=== PATIENT | female | born 1940 | race Caucasian/White ===

== ENCOUNTER → 2019-08-13 11:49 | Outpatient (CLI) | payer MEDICARE, SELFPAY ==
--- NOTE | 2019-08-13 | DI.MG.S_ITS ---
BILATERAL DIGITAL SCREENING MAMMOGRAM 3D/2D WITH CAD: 08/13/2019 CLINICAL: Routine screening. Comparison is made to exams dated: 04/24/2011 mammogram, 05/09/2012 mammogram, and 07/03/2017 mammogram - [facility]. There are scattered fibroglandular elements in both breasts. Current study was also evaluated with a Computer Aided Detection (CAD) system. There are benign vascular calcifications in both breasts. No significant masses, calcifications, or other findings are seen in either breast. There has been no significant interval change. IMPRESSION: There is no mammographic evidence of malignancy. A 1 year screening mammogram is recommended. This exam was interpreted at Station ID: [id number]. NOTE: For mammograms, a report in lay terms will be sent to the patient. Approximately 15% of breast malignancies will not be visualized mammographically. In the management of a palpable breast mass, a negative mammogram must not discourage biopsy of a clinically suspicious lesion. Electronically Signed By: Markell patten/yaron:08/22/2019 11:03:49 letter sent: Normal Exam ACR BI-RADS Category 2: Benign Finding(s) 3342F
== END ==
PROVIDERS: PCP Internal Medicine; Referring Provider Internal Medicine; Visit Provider Internal Medicine
DX: Z12.31 Encounter for screening mammogram for malignant neoplasm of breast (principal)
CPT/HCPCS: 77063; 77067

== ENCOUNTER → 2019-08-13 13:49 | Outpatient (CLI) | payer MEDICARE, SELFPAY ==
[2019-08-13] MEDS: ZOLEDRONIC ACID 5 MG in SODIUM CHLORIDE 0.9% 100 ML 318.75 ML IV (14:40)
[2019-08-13 15:06] VITALS: BP 119/56; PULSE 73; RESP 16; TEMP 36.9; O2SAT 99
== END ==
PROVIDERS: PCP Internal Medicine; Referring Provider Internal Medicine; Visit Provider Internal Medicine
DX: M81.0 Age-related osteoporosis without current pathological fracture (principal)
CPT/HCPCS: 96365; J3489

== ENCOUNTER → 2020-01-25 14:01 | Outpatient (CLI) | payer MEDICARE, SELFPAY ==
[2020-01-26 22:54] LABS: COVID19 Sendout Not Detected (Not Detected)
== END ==
PROVIDERS: PCP Internal Medicine; Visit Provider Physician Assistant
DX: Z11.59 Encounter for screening for other viral diseases (principal)
CPT/HCPCS: 87635

== ENCOUNTER 2020-01-28 11:36 | Day surgery (SDC) | payer MEDICARE, SELFPAY ==
[2020-01-28 11:59] VITALS: BP 130/66; PULSE 64; RESP 16; TEMP 36.6; O2SAT 98; BMI 21.0
[2020-01-28] MEDS: SODIUM CHLORIDE 0.9% 1,000 ML 70 ML IV (12:16)
--- NOTE | 2020-01-28 13:02 | PM.HP.1 ---
History of Present Illness History of Present Illness Date Patient Seen: 01/28/20 Chief complaint: SDC Narrative: Patient is a pleasant 79 year old female who presented for screening colonoscopy. Last colonoscopy 10-12 years ago. No prior history of polyps Patient History Medical History (Updated 12/31/19 @ 14:28 by Anthony Berrios DO) Lumbar radiculopathy (Acute) Family & Social History Social History: household members spouse Tobacco & Substance use: Smoking Status Never smoker alcohol intake current alcohol intake frequency holiday/special occasion Substance Use Type does not use Meds Home Medications and Allergies Allergies Allergy/AdvReac Type Severity Reaction Status Date / Time Sulfa (Sulfonamide Allergy Mild Nausea Verified 01/28/20 12:14 Antibiotics) Review of Systems Review of Systems ROS: Yes All systems reviewed with the patient and are negative except as otherwise documented Exam Vital Signs (past 8 hours): - 01/28/20 11:59 Temperature 97.9 F Pulse Rate 64 Respiratory Rate 16 Blood Pressure 130/66 Pulse Oximetry 98 Oxygen Delivery Method Room Air Const General: cooperative, healthy appearing, comfortable and well developed Nutritional Appearance: average body habitus Orientation: alert, awake and oriented x3 HENMT Head: normocephalic and atraumatic Resp Effort & Inspection: normal respiratory effort, able to speak in complete sentences and abnormal respiratory pattern Auscultation: clear to auscultation bilaterally Cardio Rate: regular rate Rhythm: regular rhythm Heart Sounds: S1 normal and S2 normal GI Palpation: soft Auscultation: normal bowel sounds Extrem Right lower extremity: no edema Left lower extremity: no edema Assessment & Plan Assessment & Plan narrative: 1. Colon cancer screening - Colonoscopy today, further recommendations to follow
[2020-01-28] MEDS: fentaNYL 250 MCG/5 ML INJ IV (13:42)
[2020-01-28] MEDS: MIDAZOLAM 5 MG/5 ML VIAL IV (13:42)
--- NOTE | 2020-01-28 13:55 | P.OP.ENDO_ITS ---
Operative Date/Time/Diagnoses Date of procedure: 01/28/20 Time of procedure: 13:36 Procedure Notes Procedure in detail: Surgeon: Karlee Rehman DO Procedure: Colonoscopy Preoperative diagnosis: 1. Colon cancer screening Postoperative diagnosis: 1. Diverticulosis sigmoid and descending colon 2. Mild internal hemorrhoids Medications: Conscious sedation using 3 mg IV of Midazolam and 75 mcg IV of Fentanyl Preanesthesia Assessment An H and P was performed/updated and the Px?s ASA class is 2. The procedure was discussed in detail with the patient. The potential risks and complications including infection, bleeding, missed lesions, perforation, need for surgery in case of perforation, prolonged hospital stay, and were explained. A brief question and answer period was allotted and once all questions were answered, informed consent was obtained. The patient was brought back to the procedure room and placed on standard monitoring. The patient?s vital signs were monitored continuously throughout the entire procedure. Prior to starting, a timeout was performed to confirm the patient?s identity, allergies, medications, and procedure. Procedure in detail The patient was placed in left lateral decubitus position and once adequate s edation was obtained a BRITTNEY was performed. The digital rectal examination did not reveal any palpable lesions. The tip of the colonoscope was placed in the anal canal and advanced without difficulty all the way to the cecum which was identified by the appendiceal orifice and the ileocecal valve. Careful examination of all wilks of the colon was performed with irrigation of any residual stool. The patient tolerated the procedure well and will be brought back to the recovery area to be discharged once criteria are met. The prep was judged to be good/excellent and adequate to identify polyps less than 5 mm. The withdrawal time was 8min. The total physician intraservice time was 18min. Complications There were no complications and estimated blood loss was minimal. Recommendations: Resume previous diet Continue outPx medications No further screening colonoscopies due to age. An emergency contact number was given to the patient for any complications related to the procedure
[2020-01-28 13:59] VITALS: BP 88/48; PULSE 61; RESP 11; TEMP 36.4; O2SAT 100
[2020-01-28 14:05] VITALS: BP 101/87; PULSE 72; RESP 20; TEMP 36.4; O2SAT 100
[2020-01-28 14:10] VITALS: BP 102/44; PULSE 70; RESP 18; TEMP 36.3; O2SAT 100
[2020-01-28 14:15] VITALS: BP 105/53; PULSE 62; RESP 16; TEMP 36.6; O2SAT 98
[2020-01-28 14:19] VITALS: BP 107/48; PULSE 60; RESP 17; TEMP 36.4; O2SAT 100
== END 2020-01-28 14:37 | disposition home or self-care (01) ==
PROVIDERS: PCP Internal Medicine; Referring Provider Internal Medicine; Visit Provider Student in an Organized Health Care Education/Training Program
PROC: 0DJD8ZZ Inspection of Lower Intestinal Tract, Via Natural or Artificial Opening Endoscopic (ICD-10-PCS; CPT 45378; principal; 2020-01-28 12:30)
DX: Z12.11 Encounter for screening for malignant neoplasm of colon (principal); K57.30 Diverticulosis of large intestine without perforation or abscess without bleeding; K64.0 First degree hemorrhoids
CPT/HCPCS: G0121; J2250; J3010

== ENCOUNTER → 2020-02-11 14:27 | Outpatient (CLI) | payer MEDICARE, SELFPAY ==
--- NOTE | 2020-02-11 14:30 | DI.RAD.S_ITS ---
PROCEDURE: XR LUMBAR SPINE MIN 4V INDICATIONS: progressive LBP TECHNIQUE: 5 views of the lumbar spine were acquired. COMPARISON: None. FINDINGS: Bones: 5 nonrib-bearing vertebrae are present. There is normal bony alignment. No vertebral body compression fractures. No suspicious bony lesions. Note is made of moderately severe degenerative disc disease at L5-S1 and facet osteoarthritis that is moderate in severity at L4-5 and moderately severe to L5-S1. Soft tissues: Overlying bowel gas pattern is normal. No suspicious soft tissue calcifications. Oblique images: No pars defects. IMPRESSION: Degenerative disc disease and facet osteoarthritis to the degree that significant spinal and foraminal stenosis could be present at L5-S1. No subluxation found, no definite recent trauma identified. Dictated by: Mikie Conner M.D. on 02/11/2020 at 15:41 Approved by: Mikie Conner M.D. on 02/11/2020 at 15:42
--- NOTE | 2020-02-11 14:30 | DI.RAD.S_ITS ---
PROCEDURE: XR KNEE RT 3V INDICATIONS: knee pain TECHNIQUE: 3 views of the knee were acquired. COMPARISON: None. FINDINGS: Bones: No fractures or dislocations. No suspicious bony lesions. Soft tissues: No joint effusion. No suspicious soft tissue calcifications. IMPRESSION: Normal for age, source of current knee pain symptoms is not seen. Dictated by: Mikie Conner M.D. on 02/11/2020 at 15:40 Approved by: Mikie Conner M.D. on 02/11/2020 at 15:41
--- NOTE | 2020-02-11 15:02 | DI.RAD.S_ITS ---
PROCEDURE: XR KNEE LT 3V INDICATIONS: KNEE PAIN TECHNIQUE: 3 views of the knee were acquired. COMPARISON: None. FINDINGS: Bones: No fractures or dislocations. No suspicious bony lesions. Soft tissues: No joint effusion. No suspicious soft tissue calcifications. IMPRESSION: Normal for age, source of current knee pain symptoms is not seen. Dictated by: Mikie Conner M.D. on 02/11/2020 at 15:42 Approved by: Mikie Conner M.D. on 02/11/2020 at 15:42
== END ==
PROVIDERS: PCP Internal Medicine; Referring Provider Physical Medicine & Rehabilitation; Visit Provider Physical Medicine & Rehabilitation
DX: M25.561 Pain in right knee (principal); M25.562 Pain in left knee; M51.16 Intervertebral disc disorders with radiculopathy, lumbar region; M47.26 Other spondylosis with radiculopathy, lumbar region
CPT/HCPCS: 72110; 73562

== ENCOUNTER → 2020-10-18 16:50 | Outpatient (CLI) | payer MEDICARE, SELFPAY ==
--- NOTE | 2020-10-18 | DI.MG.S_ITS ---
BILATERAL DIGITAL SCREENING MAMMOGRAM 3D/2D WITH CAD: 10/18/2020 CLINICAL: Routine screening. Comparison is made to exams dated: 08/13/2019 mammogram - , 07/03/2017 mammogram, 05/09/2012 mammogram, and 04/24/2011 mammogram - [facility]. There are scattered fibroglandular elements in both breasts. Current study was also evaluated with a Computer Aided Detection (CAD) system. There are benign vascular calcifications in both breasts. No significant masses, calcifications, or other findings are seen in either breast. There has been no significant interval change. IMPRESSION: BENIGN There is no mammographic evidence of malignancy. A 1 year screening mammogram is recommended. This exam was interpreted at Station ID: [id number]. NOTE: For mammograms, a report in lay terms will be sent to the patient. Approximately 15% of breast malignancies will not be visualized mammographically. In the management of a palpable breast mass, a negative mammogram must not discourage biopsy of a clinically suspicious lesion. Electronically Signed By: Markell patten/yaron:10/19/2020 10:42:12 letter sent: Normal Exam ACR BI-RADS Category 2: Benign Finding(s) 3342F
== END ==
PROVIDERS: PCP Internal Medicine; Referring Provider Internal Medicine; Visit Provider Internal Medicine
DX: Z12.31 Encounter for screening mammogram for malignant neoplasm of breast (principal)
CPT/HCPCS: 77063; 77067

== ENCOUNTER → 2020-10-22 13:05 | Outpatient (CLI) | payer MEDICARE, SELFPAY | PROVIDERS: PCP Internal Medicine; Referring Provider Internal Medicine; Visit Provider Internal Medicine | DX: M81.0 Age-related osteoporosis without current pathological fracture (principal); Z78.0 Asymptomatic menopausal state | CPT/HCPCS: 77080 ==

== ENCOUNTER → 2021-01-03 16:14 | Outpatient (CLI) | payer MEDICARE, SELFPAY ==
[2021-01-03 17:28] LABS: BUN Creatinine Ratio 16.4 (6-22); Blood Urea Nitrogen 12 mg/dL (7-17); Calcium 9.7 mg/dL (8.4-10.2); Carbon Dioxide 33 mmol/L (22-32); Chloride 102 mmol/L (98-107); Estimated Glomerular Filt Rate > 60.0 mL/min (>60); Glucose 104 mg/dL (80-110); HEMOLYSIS < 15 (0-50); Sodium 140 mmol/L (137-145)
== END ==
PROVIDERS: PCP Internal Medicine; Referring Provider Internal Medicine; Visit Provider Internal Medicine
DX: M81.0 Age-related osteoporosis without current pathological fracture (principal)
CPT/HCPCS: 36415; 80048